=== PATIENT | female | born 1980 | race Caucasian/White ===

== ENCOUNTER 2025-04-12 11:58 | Emergency (ER) | payer OTHER, SELFPAY ==
--- OUTSIDE RECORDS SUMMARY | 2025-04-12 12:00 | XMS_ITS | Clinical Summary ---
Author Organization [facility] Address [facility] [place] [address] Care Team Providers Care Chemical Laboratory Chief Name Role Phone Consultants, [facility] Primary Care Provider Unavailable Allergies Active Allergy Reactions Criticality Noted Date Comments Blood-Group Specific Substance 11/18/2009 Pt has a warm auto antibody. Blood product orders may be delayed. Draw one red top tube and two purple top tubes for all Type and Screen/Type and Crossmatch orders. Codeine *Unknown 05/04/2009 Medications DOCOSAHEXANOIC ACID/EPA (FISH OIL ORAL) Take 1 Tab by mouth. daily Active VIT/FE FUMARATE/FA ( S ORAL) Take 1 Tab by mouth once daily. Active Breast Pump - Purchase As directed. For home use. Gestation age at delivery: term delivery, ongoing nutrition for 1 unit 0 1 Active Active Problems Problem Noted Date Diagnosed Date Normal delivery 03/15/2011 Family History Medical History Relation Name Comments Cancer No Family History Cancer-breast No Family History Cancer-colon No Family History Cancer-ovarian No Family History Cancer-prostate No Family History Social History Tobacco Use Types Packs/Day Years Used Date Smoking Tobacco: Former Cigarettes Q uit: 02/01/2009 Smokeless Tobacco: Never Alcohol Use Standard Drinks/Week Comments Not Asked 0 (1 standard drink = 0.6 oz pur e alcohol) Comments Unknown Sex and Gender Information Value Date Recorded Sex Assigned at Not on file Legal Sex Female 7:42 AM [employer] Gender Identity Not on file Sexual Orientation Not on file Obstetrics History Para Term AB IAB SAB Ectopic Multiple Livin g Live Births 4 1 1 0 3 1 2 0 0 1 1 Date Outcome GA Total Labor Labor/2nd/3rd Weight Sex Type Anes PTL [place] A1 A5 Name Clin SAB SAB IAB 011 Term 40w 0d 3.37 kg (7 lb 7 oz) F Vag Living 9 9 CHIPPenelope BENZ, BG Delivery Location:[facility] Last Filed Vital Signs Vital Sign Reading Time Taken Comments Blood Pressure 129/75 03/17/2011 9:00 AM CDT Pulse 78 03/17/2011 9:00 AM CDT Temperature 36.6 C (97.8 F) 03/17/2011 9:00 AM CDT Respiratory Rate 16 03/17/2011 9:00 AM CDT Oxygen Saturation 97% 03/15/2011 6:00 AM CDT Inhaled Oxygen Concentration - - Weight 84.7 kg (186 lb 11.2 oz) 03/14/2011 4:05 PM CDT Height 176.5 cm (5' 9.5) 03/14/2011 4:05 PM CDT Body Mass Index 27.18 03/14/2011 4:05 PM CDT Plan of Treatment Health Maintenance Due Date Last Done Comments Tetanus booster 1992 Depression screening for age 12+ 1993 HIV for age 15-65 1996 BMI (ht and wt on same day) for age 18+ 10/06/1999 Hepatitis C screening for ag e 18-79 10/06/1999 Hepatitis B series for 19+ ( 1 of 3 - 19+ 3-dose series) 2000 Pap test for age 21-65 2002 HPV series for age 9-45 (1 - 3-dose SCDM series) 2008 Influenza Vaccine (#1) 2025 RSV vaccine for adults or (1 - 1-dose 75+ series) 2056 Pneumococcal series for age 6-49 Aged Out No longer eligible based on patient's age to complete this topic Insurance [place] [address] Advance Directives * Full Code (Latest Code Status on File) Date Activated Date Inactivated Comments 03/15/2011 2:01 PM 03/17/2011 4:50 PM * Full Code Date Activated Date Inactivated Comments 03/14/2011 6:07 PM 03/15/2011 1:51 PM * Full Code Date Activated Date Inactivated Comments 03/14/2011 4:11 PM 03/14/2011 6:07 PM * Full Code Date Activated Date Inactivated Comments 11/18/2009 10:17 AM 11/18/2009 3:29 PM Care Teams Chemical Laboratory Chief Relationship Specialty Start Date End Date [facility], [facility] . PCP - General Obstetrics and Gynecology 05/06/12
[2025-04-12 12:08] VITALS: BP 126/86; PULSE 76; RESP 16; TEMP 36.9; O2SAT 99; BMI 23.0
--- NOTE | 2025-04-12 12:11 | CRLHL7_ITS ---
For Patients: As a result of the Century Cures Act, medical imaging exams and procedure reports are released immediately into your electronic medical record. You may view this report before your referring provider. If you have questions, please contact your health care provider. Indication: Left ankle injury. Technique: Three views of the left ankle. Comparison: None. Findings: No acute fracture. The talar dome intact. Plantar calcaneal spurring. Calcaneal enthesophyte. Os peroneum. Dictated by Ramiro Cotter MD @ 04/12/2025 1:06:00 PM (Electronically Signed)
--- NOTE | 2025-04-12 12:23 | ED.LOWEXIN ---
HPI - Extremity Injury (Lower) General Date Seen: 04/12/25 Chief Complaint: Extremity Pain/Injury, Lower Stated Complaint: ankle injury Time Seen by Provider: 04/12/25 12:20 Source: patient and RN notes reviewed Mode of arrival: ambulatory Limitations: no limitations History of Present Illness HPI Narrative: garrison is a very pleasant 44-year-old female healthy who comes to the emergency room after injuring her left ankle and foot. Patient notes that she was coming downstairs and caring something and missed the last step. She did not completely fall but notes landing on her right ankle and demonstrates an inversion type injury. She states she felt a pop and had immediate cold feeling wash over her and was even a little old nauseated. Since then she has been able to bear weight but has noticed increased swelling on the top of her foot and pain on the bottom of her foot. Movement increases her discomfort. No other injury to report. Related Data Previous Rx's ?Medication ?Instructions ?Recorded albuterol sulfate 90 mcg/actuation 2 puff inhalation Q4-6H PRN 05/04/22 aerosol inhaler shortness of breath or wheezing #6.7 grams Allergies Allergy/AdvReac Type Severity Reaction Status Date / Time codeine Allergy Unknown Verified 04/12/25 12:07 Review of Systems Status of ROS: Reports: 6 or more systems reviewed and unremarkable except as noted in History and below Narrative: No prodromal symptoms, injury, numbness or tingling. Back pain. [facility] Social History Smoking Status: Never smoker Exam Narrative: Exam Narrative: Alert and oriented. Very well-spoken woman in no acute distress. Examination of left ankle shows an area of ecchymosis and edema over the proximal metatarsals 3 4 in 5, lateral ankle. He has tenderness noted in the cuboid and proximal metatarsals. She also has discomfort with palpation over the 1st metatarsal proximal middle 3rd. No obvious other deformities. Palpation over the calcaneus Achilles insertion within normal limits. Const: Vital Signs, click to edit/add: Vital Signs - 24 hr 04/12/25 12:08 Temperature 98.4 F Pulse Rate [Pulse Oximeter] 76 Respiratory Rate 16 Blood Pressure [Ri ght Upper Arm] 126/86 Pulse Oximetry 99 Oxygen Delivery Me thod Room Air Documenting provider has reviewed patient's vital signs: yes Course Course ED Course: Differential diagnosis includes but is not limited to fracture, ligamental injury, soft tissue injury. X-ray of the ankle was ordered by our nursing staff. Upon my review I do not note any abnormalities. However after examination the discomfort is more on the dorsum lateral of her foot and I would like to do dedicated films of the foot as well. Reevaluation(s) Reevaluation #1: I continue to be concerned about ligamental injury based on patient's history. Will place her in a cam walker with crutches. Vital Signs Vital signs: Initial Vital Signs Temperature 98.4 F 04/12/25 12:08 Temperature Source Temporal Artery Scan 04/12/25 12:08 Pulse Rate 76 04/12/25 12:08 Respiratory Rate 16 04/12/25 12:08 Blood Pressure 126/86 04/12/25 12:08 Blood Pressure Mean 99 04/12/25 12:08 Pulse Oximetry 99 04/12/25 12:08 Oxygen Delivery Method Room Air 04/12/25 12:08 Vital Signs Temperature 98.4 F 04/12/25 12:08 Pulse Rate 76 04/12/25 12:08 Respiratory Rate 16 04/12/25 12:08 Blood Pressure 126/86 04/12/25 12:08 Pulse Oximetry 99 04/12/25 12:08 Oxygen Delivery Method Room Air 04/12/25 12:08 Temperature 98.4 F 04/12/25 12:08 Pulse Rate 76 04/12/25 12:08 Respiratory Rate 16 04/12/25 12:08 Blood Pressure 126/86 04/12/25 12:08 Pulse Oximetry 99 04/12/25 12:08 Oxygen Delivery Method Room Air 04/12/25 12:08 MDM - Extremity Injury (Lower) MDM Narrative Medical decision making narrative: 1. Left ankle/foot injury-no evidence of acute fractures but do suspect underlying ligamental injury. Will place patient in cam boot with crutches for partial weight-bearing. Will have her elevate ice this foot. If not improving over the next 72 hours suggest follow-up with orthopedics for recheck. Ibuprofen or Tylenol as needed for discomfort. 2. Disposition-home at this time. Seek medical attention for worsening symptoms. Follow-up with orthopedics if not improving over the next few days. Medical Records Attestation: I reviewed the patient's medical records. Medical records narrative: Urgent care note in the record. Imaging Data Left ankle x-ray: Attestation: I have reviewed the pertinent imaging results. My impression: I did not note any acute fractures on my read. Radiologist's impression: No acute fracture. Mild scattered degenerative changes of the distal interphalangeal joints. Os peroneum. Plantar calcaneal spurring. Calcaneal enthesophyte. Left foot x-ray: Attestation: I have reviewed the pertinent imaging results. My impression: I do not note any acute fractures Radiologist's impression: No acute fracture. Mild scattered degenerative changes of the distal interphalangeal joints. Os peroneum. Plantar calcaneal spurring. Calcaneal enthesophyte. Discharge Plan Discharge Clinical Impression: Injury of ankle and foot Qualifiers: Encounter type: initial encounter Laterality: left Qualified Code(s): S99.912A - Unspecified injury of left ankle, initial encounter Patient Disposition: Home, Self-Care Condition: Unchanged Additional Instructions: Cam walker for the next 72 hours. Crutches for balance. You may use the cam walker for partial weight-bearing. When not walking which I would recommend limiting-I would like to have you elevate your foot ice as needed. Ibuprofen or Tylenol may be used for discomfort. If you are not improved in the next 72 hours strongly suggest follow-up with [facility]. Their phone number is [phone]. Return to the ER for worsening symptoms. Prescriptions: No Action albuterol sulfate 90 mcg/actuation HFA aerosol inhaler 2 puff inhalation Q4-6H PRN (Reason: shortness of breath or wheezing) Qty: 6.7 0RF Follow Up/Referrals: Alisa Saunders PA-C [Staff Physician, Family Practice] Stand Alone Forms: Branch2 Info Instructions
--- NOTE | 2025-04-12 13:42 | CRLHL7_ITS ---
For Patients: As a result of the Century Cures Act, medical imaging exams and procedure reports are released immediately into your electronic medical record. You may view this report before your referring provider. If you have questions, please contact your health care provider. Indication: Foot pain. Technique: Three views of the left foot. Comparison: None. Findings: No acute fracture. Mild scattered degenerative changes of the distal interphalangeal joints. Os peroneum. Plantar calcaneal spurring. Calcaneal enthesophyte. Dictated by Ramiro Cotter MD @ 04/12/2025 2:11:23 PM (Electronically Signed)
== END 2025-04-12 14:40 | disposition home or self-care (01) ==
PROVIDERS: Emergency Provider Family Medicine; PCP Obstetrics & Gynecology
DX: M25.572 Pain in left ankle and joints of left foot (principal); W10.8XXA Fall (on) (from) other stairs and steps, initial encounter; Y93.01 Activity, walking, marching and hiking; Y92.008 Other place in unspecified non-institutional (private) residence as the place of occurrence of the external cause
CPT/HCPCS: 73610; 73630; 99283